=== PATIENT | female | born 1995 | race Caucasian/White ===

== ENCOUNTER 2018-06-04 11:22 | Emergency (ER) | payer OTHER ==
--- NOTE | 2018-06-04 11:36 | ER Document Report ---
HPI - HPI Time Seen by Provider: 06/04/18 11:35 Pain Level: 3 Notes: 23-year-old female presents ED with complaints of cough, headache, myalgias for the last 3 days, worse with time, nothing makes better. Did not get the flu shot this year. Patient states she is not sexually active last menstrual period was over 2 months ago. Has been around sick contacts. Aside from flu, vaccinations are up-to-date. Decreased eating but drinking without issues. No nausea vomiting diarrhea, denies fevers, is unsure about chills, denies any chest pain or shortness of breath. Denies any abdominal pain, denies any dysuria, lightheadedness, dizziness, no numbness or down arms or legs. - REPRODUCTIVE Reproductive: DENIES: : Past Medical History - General Information source: Patient - Social History Smoking Status: Unknown if Ever Smoked Family History: Reviewed & Not Pertinent - Immunizations Hx Diphtheria, Pertussis, Tetanus Vaccination: No Vertical Provider Document - CONSTITUTIONAL Agree With Documented VS: Yes Notes: PHYSICAL EXAMINATION: GENERAL: Well-appearing, well-nourished and in no acute distress. HEAD: Atraumatic, normocephalic. EYES: Pupils equal round and reactive to light, extraocular movements intact, conjunctiva are normal. ENT: TM intact with bilateral serous effusion, no erythema. Nares boggy bilaterally, oropharynx with erythema without exudates. Moist mucous membranes. NECK: Normal range of motion, supple without lymphadenopathy LUNGS: Wheezes in bilateral upper lobes, diminished breath sounds at bilateral lower lobes. After breathing treatment, lungs CTA, no wheezing, rales or rhonchi. HEART: Regular rate and rhythm without murmurs ABDOMEN: Soft, nontender, nondistended abdomen. No guarding, no rebound. No masses appreciated. Female : deferred Musculoskeletal: Normal range of motion, no pitting or edema. No cyanosis. NEUROLOGICAL: Cranial nerves grossly intact. Normal speech, normal gait. Normal sensory, motor exams PSYCH: Normal mood, normal affect. SKIN: Warm, Dry, normal turgor, no rashes or lesions noted. - INFECTION CONTROL TRAVEL OUTSIDE OF THE [place] IN LAST 30 DAYS: No Course - Re-evaluation Re-evalutation: 06/04/18 11:44 Afebrile, vitals stable no no distress noted wheezing on examination, DuoNeb given with resolution of wheezing. Chest x-ray negative for any acute findings per radiology influenza I have reevaluated this patient multiple times and no significant life th reatening changes, no signs of toxicity, sepsis or peritonitis are noted. The patient and I have discussed the diagnosis and risks, and we agree with discharging home and close follow-up. We also discussed returning to the Emergency Department immediately if new or worsening symptoms occur with the understanding that symptoms and presentations can change. At this time will discharge with return precautions and follow-up recommendations. Verbal discharge instructions given a the bedside and opportunity for questions given. We have discussed the symptoms which are most concerning (e.g., fever, vomiting, neck pain, worse headache of life, confusion changing or worsening pain) that necessitate immediate return. Medication warnings reviewed. All questions and concerns answered by this provider. Patient is in agreement with this plan and has verbalized understanding of return precautions and the need for primary care follow-up in the next 24-72 hours. Patient verbalized understanding of plan of care and agree with plan of care. 06/04/18 12:53 - Vital Signs Vital signs: Temp Pulse Resp BP Pulse Ox 97.8 F 67 16 129/87 H 99 06/04/18 11:27 06/04/18 11:27 06/04/18 11:27 06/04/18 11:27 06/04/18 11:27 Discharge - Discharge Clinical Impression: Cough Condition: Stable Disposition: HOME, SELF-CARE Instructions: Bronchitis With Bronchospasm (Wheezing) ([facility]), Inhaled Bronch odilators ([facility]), Upper Respiratory Illness ([facility]) Additional Instructions: Your chest x-ray negative for any acute findings. Your influenza was negative. You have a viral infection, use rescue inhaler and medications as directed. Follow-up with your primary care provider within 1 to 2 days. Take prednisone as directed, use Ventolin inhaler as needed for coughing fits. If symptoms become worse return to the ED. Return immediately for any new or worsening symptoms. Follow up with primary care provider, call tomorrow to make followup appointment. Prescriptions: Albuterol Sulfate [Proair Respiclick] 90 mcg IH Q4HP PRN #1 [email or web address] PRN Reason: Prednisone [Deltasone 20 mg Tablet] 3 tab PO DAILY 5 Days #15 tablet Forms: Return to Work Referrals: FRANSISCO LAGUNAS MD [ACTIVE STAFF] - Follow up in 3-5 days (or sooner if needed)
[2018-06-04] MEDS ORDERED: IPRATROPIUM/ALBUTEROL 0.5-2.5 MG/3 ML AMPUL NEB ONE (11:40)
--- NOTE | 2018-06-04 12:21 | RADIOLOGY REPORT (SQ) ---
EXAM DESCRIPTION: CHEST 2 VIEWS COMPLETED DATE/TIME: 06/04/2018 12:13 pm REASON FOR STUDY: wheezing, cough COMPARISON: 11/07/2015 EXAM PARAMETERS: NUMBER OF VIEWS: two views TECHNIQUE: Digital Frontal and Lateral radiographic views of the chest acquired. RADIATION DOSE: NA LIMITATIONS: none FINDINGS: LUNGS AND PLEURA: No opacities, masses or pneumothorax. No pleural effusion. MEDIASTINUM AND HILAR STRUCTURES: No masses or contour abnormalities. HEART AND VASCULAR STRUCTURES: Heart normal size. No evidence for failure. BONES: No acute findings. HARDWARE: None in the chest. OTHER: No other significant finding. IMPRESSION: NO ACUTE RADIOGRAPHIC FINDING IN THE CHEST. TECHNICAL DOCUMENTATION: JOB ID: [id number] [employer]- All Rights Reserved Reading location - IP/workstation name: [email or web address]
[2018-06-04 12:53] LABS: A TYPE INFLUENZA AG NEGATIVE (NEGATIVE); B INFLUENZA AG NEGATIVE (NEGATIVE)
[2018-06-04 13:42] VITALS: BP 120/73
== END 2018-06-04 13:42 | disposition home or self-care (01) ==
LOC: ER 11:22
DX: R05 Cough (principal); R51 Headache; M79.10 Myalgia, unspecified site
CPT/HCPCS: 94640; 99283; 87804; 71046; J7620